=== PATIENT | female | born 1990 | race African-American/Black ===

== ENCOUNTER → 2016-06-14 | Outpatient (CLI) | payer BC | END | disposition home or self-care (01) | LOC: MW.CHOBGYN 15:24 | PROVIDERS: ATTEND Advanced Practice Midwife | DX: Z33.1 Pregnant state, incidental (principal) | CPT/HCPCS: 36415; 84702 ==

== ENCOUNTER 2016-10-16 13:03 | Emergency (ER) | payer BC ==
--- NOTE | 2016-10-16 13:32 | EDM.PDOC ---
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 Patient had a positive home test approximately 3 weeks ago and subsequently now has severe cramping, some heavy bleeding, as well as perceived loss of something that looks tissue like. Patient acknowledges she did also have an in June 3-4 months ago.] Review of systems: As per history of present illness and below otherwise all systems reviewed and negative. Past medical history: As per history of present illness and as reviewed below otherwise noncontributory. Surgical history: As per history of present illness and as reviewed below otherwise noncontributory. Social history: No reported history of drug or alcohol abuse. Family history: As per history of present illness and as reviewed below otherwise noncontributory. Physical exam: HEENT: Atraumatic, normocephalic, pupils reactive, negative for conjunctival pallor or scleral icterus, mucous membranes moist, throat clear, neck supple, nontender, trachea midline. Lungs: Clear to auscultation, breath sounds equal bilaterally, chest nontender. Heart: S1S2, regular, negative for clicks, rubs, or JVD. Abdomen: Soft, nondistended, diffuse tenderness. Negative for masses or hepatosplenomegaly. Negative for costovertebral tenderness. Pelvis: Stable nontender. Genitourinary: Deferred. Rectal: Deferred. Extremities: Atraumatic, negative for cords or calf pain. Neurovascular unremarkable. Neuro: Awake, alert, oriented. Cranial nerves II through XII unremarkable. Cerebellum unremarkable. Motor and sensory unremarkable throughout. Exam nonfocal. Patient indicates she had been bleeding for several days and passed tissue vaginally but that the bleeding has tapered off and she is not bleeding now Patient indicated to nurse that she was nauseated and had been vomiting at home and felt dehydrated her urine indicates that she is not. Transvaginal ultrasound shows a single live intrauterine Diagnostics: [CBC, CMP, serum hCG quantitative, transvaginal ultrasound] Therapeutics: [IV, Toradol] Impression: [#1 threatened first trimester ] Plan: [Discharge with Zofran for home encourage sips and chips and or BRAT diet as tolerated follow-up with OB] Definitive disposition and diagnosis as appropriate pending reevaluation and review of above. Abdomen Pain Score (Numeric/FACES): 9 - Related Data Allergies Allergy/AdvReac Type Severity Reaction Status Date / Time No Known Allergies Allergy Verified 10/16/16 13:21 Home Meds: Home Meds Ondansetron HCl [Zofran] 4 mg PO Q8HR #20 tablet 10/16/16 [Rx] Past Medical History - Past Health History Medical/Surgical History: Denies Medical/Surgical History Social & Family History - Family History Family Medical History: Noncontributory - Tobacco Use Smoking Status *Q: Never Smoker - Recreational Drug Use Recreational Drug Use: No ED ROS GENERAL - Review of Systems Review Of Systems: See Below (See history of present illness) ED EXAM - Physical Exam Exam: See Below (See history of present illness) Course - Vital Signs Last Recorded V/S: Last Vital Signs Temp 37.2 C 10/16/16 13:21 Pulse 85 10/16/16 13:21 Resp 16 10/16/16 13:21 BP 125/75 10/16/16 13:21 Pulse Ox 98 10/16/16 13:21 - Orders/Labs/Meds Orders: Active Orders 24 hr Category Date Time Status OB 1st Tri Sgl 1st Gest [US] Stat Exams 10/16/16 13:22 Ordered Labs: Laboratory Tests 10/16/16 10/16/16 10/16/16 Range/Units 13:40 13:45 13:45 WBC 7.59 (4.0-11.0) K/uL RBC 3.94 L (4.30-5.90) M/uL Hgb 12.9 (12.0-16.0) g/dL Hct 37.3 (36.0-46.0) % MCV 94.7 (80.0-98.0) fL MCH 32.7 H (27.0-32.0) pg MCHC 34.6 (31.0-37.0) g/dL RDW Std Deviation 43.4 (28.0-62.0) fl RDW Coeff of Jenn 13 (11.0-15.0) % Plt Count 269 (150-400) K/uL MPV 8.40 (7.40-12.00) fL Neut % (Auto) 64.4 (48.0-80.0) % Lymph % (Auto) 22.9 (16.0-40.0) % Harris % (Auto) 10.0 (0.0-15.0) % Eos % (Auto) 2.6 (0.0-7.0) % Baso % (Auto) 0.1 (0.0-1.5) % Neut # (Auto) 4.9 (1.4-5.7) K/uL Lymph # (Auto) 1.7 (0.6-2.4) K/uL Harris # (Auto) 0.8 (0.0-0.8) K/uL Eos # (Auto) 0.2 (0.0-0.7) K/uL Baso # (Auto) 0.0 (0.0-0.1) K/uL Nucleated RBC % 0.0 /100WBC Nucleated RBCs # 0 K/uL HCG, Quant 23611.1 mIU/mL Urine Color YELLOW Urine Appearance CLEAR Urine pH 5.5 (5.0-8.0) Ur Specific [place] <= 1.005 (1.001-1.035) Urine Protein NEGATIVE (NEGATIVE) mg/dL Urine Glucose (UA) NEGATIVE (NEGATIVE) mg/dL Urine Ketones NEGATIVE (NEGATIVE) mg/dL Urine Occult Blood TRACE-INTACT (NEGATIVE) Urine Nitrite NEGATIVE (NEGATIVE) Urine Bilirubin NEGATIVE (NEGATIVE) Urine Urobilinogen 0.2 (<2.0) EU/dL Ur Leukocyte Esterase NEGATIVE (NEGATIVE) Urine RBC 0-3 (0-2/HPF) Urine WBC 0-2 (0-5/HPF) Ur Epithelial Cells MODERATE (NONE-FEW) Urine Bacteria FEW (NEGATIVE) Departure - Departure Time of Disposition: 15:34 Disposition: Home, Self-Care 01 Condition: Good Clinical Impression: Threatened - Discharge Information Referrals: Anitra Hutson CNM [Primary Care Provider] - Forms: ED Department Discharge Additional Instructions: The following information is given to patients seen in the emergency department who are being discharged to home. This information is to outline your options for follow-up care. We provide all patients seen in our emergency department with a follow-up referral. The need for follow-up, as well as the timing and circumstances, are variable depending upon the specifics of your emergency department visit. If you don't have a primary care physician on staff, we will provide you with a referral. We always advise you to contact your personal physician following an emergency department visit to inform them of the circumstance of the visit and for follow-up with them and/or the need for any referrals to a consulting specialist. The emergency department will also refer you to a specialist when appropriate. This referral assures that you have the opportunity for follow-up care with a specialist. All of these measure are taken in an effort to provide you with optimal care, which includes your follow-up. Under all circumstances we always encourage you to contact your private physician who remains a resource for coordinating your care. When calling for follow-up care, please make the office aware that this follow-up is from your recent emergency room visit. If for any reason you are refused follow-up, please contact the [facility] Emergency Department at and asked to speak to the emergency department charge nurse. Take medicine as directed Have complete pelvic rest for the next several weeks that the bellybutton to the knees a simulation of any kind until cleared by OB Establish care and follow-up with OB HORACE for trending of serum quantitative hCG levels [facility] Primary Care - Women's Health [address] [place] [id number] - My Orders Last 24 Hours: My Active Orders 10/16/16 13:22 OB 1st Tri Sgl 1st Gest [US] Stat - Assessment/Plan Last 24 Hours: My Active Orders 10/16/16 13:22 OB 1st Tri Sgl 1st Gest [US] Stat
[2016-10-16 16:59] VITALS: BP 112/69
--- NOTE | 2016-10-18 13:57 | US ---
EXAM DATE: 10/16/16 PATIENT'S AGE: 26 Patient: ROBLES BHAKTA Facility: [place], [place] Site . Site : 1990 Study: US OB Pelvis [id number]/9/2017 3:04:55 PM Ordering Physician: Doctor Crook Final Report: INDICATION: VAGINAL BLEEDING HISTORY: Vaginal bleeding. COMPARISON: None. TECHNIQUE: Pelvic ultrasound. Transabdominal imaging of the pelvis was obtained. The patient refused endovaginal imaging. Color/spectral Doppler was performed to evaluate for ovarian torsion. FINDINGS: There is an intrauterine gestational sac, with yolk sac, and embryo. Hammond-rump length is 7.9 mm. This corresponds to a gestational age of 6 weeks, 5 days. Mean sac diameter is 2.5 cm. This corresponds to a gestational age of 7 weeks, 5 days. The ultrasound gestational age today is 7 weeks, 2 days, which corresponds to an ultrasound EDC of 06/02/2017. There is no adnexal mass. The left ovary measures 1.7 x 1.7 x 2.2 cm. The right ovary measures 2.4 x 2.1 x 2.3 cm. Normal, low resistance arterial blood flow is preserved to both ovaries on color/spectral Doppler. IMPRESSION: Single living intrauterine embryo, with an ultrasound gestational age today of 7 weeks, 2 days, corresponding to an ultrasound EDC of 06/02/2017. Dictated by Mason Conway MD @ 10/16/2016 3:27:12 PM Dictated by: Mason Conway MD @ 10/16/2016 15:27:19 (Electronic Signature) Report Signed by Proxy. YULIA
== END 2016-10-16 15:53 | disposition home or self-care (01) ==
LOC: MW.ED 13:03
DX: O20.0 Threatened abortion (principal); Z3A.01 Less than 8 weeks gestation of pregnancy
CPT/HCPCS: 36415; 76801; 76801-26; 81001; 84702; 85025; 99283; 99284-25

== ENCOUNTER 2016-11-21 23:06 | Emergency (ER) | payer SELFPAY ==
[2016-11-21] MEDS ORDERED: Albuterol/Ipratropium 3.0-0.5 MG/3 ML Neb Soln NEB ONE (23:34)
[2016-11-21] MEDS ORDERED: Alum Hydrox/Mag Hydrox/Simeth 15 ML, Lidocaine 2% 5 ML PO ONE ×2 (23:34)
--- NOTE | 2016-11-21 23:36 | EDM.PDOC ---
ED HPI GENERAL MEDICAL PROBLEM - General Chief Complaint: Respiratory Problem Stated Complaint: COUGH/CONGESTION/CHEST PAIN/SOB Time Seen by Provider: 11/21/16 23:27 - History of Present Illness INITIAL COMMENTS - FREE TEXT/NARRATIVE: HISTORY AND PHYSICAL: History of present illness: The patient is a healthy 26-year-old female who presents with episodic spastic dry cough and a tickling her throat that makes her feel like "her ear is getting cut off" or that she can't swallow properly. Patient states that his been occurring episodically but she just got off a plane and it seems to be worse. Patient has been eating and drinking normally and has had a dry hacking cough. She has minimal nasal drainage but no fevers chills nausea vomiting abdominal pain. 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 Review of systems: As per history of present illness and below otherwise all systems reviewed and negative. Past medical history: As per history of present illness and as reviewed below otherwise noncontributory. Surgical history: As per history of present illness and as reviewed below otherwise noncontributory. Social history: No reported history of drug or alcohol abuse. Family history: As per history of present illness and as reviewed below otherwise noncontributory. Physical exam: Gen.: Well-developed well-nourished female whose vital signs of an reviewed by me. She is nontoxic and has a slight hoarseness to her throat and voice and she has a dry tickle/hacking cough that is visible in the room. She is not breathless and her voice is not muffled. HEENT: Atraumatic, normocephalic, pupils reactive, negative for conjunctival pallor or scleral icterus, mucous membranes moist, throat clear of exudates but there is posterior oropharyngeal erythema, there is no adenopathy or nuchal rigidity, neck supple, nontender, trachea midline. Lungs: Clear to auscultation, breath sounds equal bilaterally, chest nontender. There is no wheezing or stridor no worker breathing or sensory muscle use Heart: S1S2, regular rate and rhythm no overt murmurs Abdomen: Soft, nondistended, nontender. NABS Pelvis: Deferred Genitourinary: Deferred. Rectal: Deferred. Extremities: Atraumatic, negative for cords or calf pain. Neurovascular unremarkable. Neuro: Awake, alert, oriented. Cranial nerves II through XII unremarkable. Cerebellum unremarkable. Motor and sensory unremarkable throughout. Exam nonfocal. Diagnostics: Rapid strep influenza soft tissue neck x-ray chest x-ray Therapeutics: Amando kamara GI cocktail Patient states she does feel little but better after the treatments and says she has a nebulizer machine at home that she would like more albuterol for which I will prescribe. I will also prescribe her some Phenergan with codeine because she feels like the cough is what is bothering him the most and the tickling in the throat. She was advised to use coolmist humidifier and to follow -up in the clinic and I will give her referral to ENT as well and she may need to pursue that if the symptoms persist. Impression: Cough/odontophagia Definitive disposition and diagnosis as appropriate pending reevaluation and review of above. 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 ED EXAM, GENERAL - Physical Exam Exam: See Below (See dictation) Course - Vital Signs Last Recorded V/S: Last Vital Signs Temp 36.7 C 11/21/16 23:20 Pulse 78 11/21/16 23:20 Resp 18 11/21/16 23:20 BP 118/83 11/21/16 23:20 Pulse Ox 96 11/21/16 23:20 - Orders/Labs/Meds Orders: Active Orders 24 hr Category Date Time Status RT Aerosol Therapy [RC] ASDIRECTED Care 11/21/16 23:34 Active Chest 2V [CR] Stat Exams 11/21/16 23:33 Taken Neck Soft Tissue [CR] Stat Exams 11/21/16 23:34 Taken CULTURE STREP A CONFIRMATION [RM] Stat Lab 11/22/16 00:08 Results INFLUENZA A+B AG SCREEN [RM] Stat Lab 11/21/16 23:36 Uncollected STREP SCRN A RAPID W CULT CONF [RM] Stat Lab 11/22/16 00:08 Results Meds: Medications Discontinued Medications Generic Name Dose Route Start Last Admin Trade Name Freq PRN Reason Stop Dose Admin Albuterol/Ipratropium 3 ml 11/21/16 23:34 11/22/16 00:09 Duoneb 3.0-0.5 Mg/3 Ml NEB 11/21/16 23:35 3 ml ONETIME ONE Administration Al Hydroxide/Mg Hydroxide 15 0 ml 11/21/16 23:34 11/22/16 00:09 ml/ Lidocaine HCl 5 ml PO 11/21/16 23:35 20 each ONETIME ONE Administration Departure - Departure Time of Disposition: 00:48 Disposition: Home, Self-Care 01 Condition: Good Clinical Impression: Cough - Discharge Information Referrals: PCP,None [Primary Care Provider] - Forms: ED Department Discharge Additional Instructions: The following information is given to patients seen in the emergency department who are being discharged to home. This information is to outline your options for follow-up care. We provide all patients seen in our emergency department with a follow-up referral. The need for follow-up, as well as the timing and circumstances, are variable depending upon the specifics of your emergency department visit. If you don't have a primary care physician on staff, we will provide you with a referral. We always advise you to contact your personal physician following an emergency department visit to inform them of the circumstance of the visit and for follow-up with them and/or the need for any referrals to a consulting specialist. The emergency department will also refer you to a specialist when appropriate. This referral assures that you have the opportunity for followup care with a specialist. All of these measure are taken in an effort to provide you with optimal care, which includes your followup. Under all circumstances we always encourage you to contact your private physician who remains a resource for coordinating your care. When calling for followup care, please make the office aware that this follow-up is from your recent emergency room visit. If for any reason you are refused follow-up, please contact the [facility] emergency department at and ask to speak to the emergency department charge nurse. [facility] Primary care- Internal Medicine and Family [address] [place] [id number] [facility] [address] [place] [address] Please contact one of our clinic providers for further reevaluation and care of this problem. Use albuterol in your nebulizer machine every 6 hours as needed. Please use the Phenergan with codeine prescribed to be Insty Meds for cough for sleep but do not take it unless you're at home as it may make you drowsy. Please also contact our ENT specialist for further care as you feel necessary. Return to ER as needed and as discussed. Push hydration - My Orders Last 24 Hours: My Active Orders 11/21/16 23:33 Chest 2V [CR] Stat 11/21/16 23:34 RT Aerosol Therapy [RC] ASDIRECTED Neck Soft Tissue [CR] Stat 11/21/16 23:36 INFLUENZA A+B AG SCREEN [RM] Stat 11/22/16 00:08 CULTURE STREP A CONFIRMATION [RM] Stat STREP SCRN A RAPID W CULT CONF [] Stat - Assessment/Plan Last 24 Hours: My Active Orders 11/21/16 23:33 Chest 2V [CR] Stat 11/21/16 23:34 RT Aerosol Therapy [RC] ASDIRECTED Neck Soft Tissue [CR] Stat 11/21/16 23:36 INFLUENZA A+B AG SCREEN [RM] Stat 11/22/16 00:08 CULTURE STREP A CONFIRMATION [RM] Stat STREP SCRN A RAPID W CULT CONF [] Stat
[2016-11-22 01:04] VITALS: BP 112/70
--- NOTE | 2016-11-22 14:35 | CR ---
EXAM DATE: 11/21/16 PATIENT'S AGE: 26 Patient: ROBLES BHAKTA Facility: [place], [place] Site . Site : 1990 Study: XRay ST Neck [id number]/16/2017 12:05:35 AM Ordering Physician: Venu Freeman Final Report: INDICATION: Pain. TECHNIQUE: Soft tissue neck 2 view. COMPARISON: None. FINDINGS: Prevertebral soft tissues and airway as imaged are unremarkable. The epiglottis is normal in appearance. No radiopaque foreign body evident. Visualized osseous structures are unremarkable. IMPRESSION: Unremarkable soft tissue neck radiographs. Dictated by Dustin Parson MD @ 11/22/2016 12:12:29 AM Dictated by: Dustin Parson MD @ 11/22/2016 00:12:37 (Electronic Signature) Report Signed by Proxy. YULIA
--- NOTE | 2016-11-22 14:38 | CR ---
EXAM DATE: 11/21/16 PATIENT'S AGE: 26 Patient: ROBLES BHAKTA Facility: [place], [place] Site . Site : 1990 Study: XRay Chest [id number]/16/2017 12:05:59 AM Ordering Physician: Venu Freeman Final Report: INDICATIONS: Pain. Shortness of breath. TECHNIQUE: Chest 2 view. COMPARISON: None FINDINGS: No pneumothorax, pleural effusion or airspace consolidation. Cardiac and mediastinal contours are within normal limits. Upper abdomen and osseous structures show no acute abnormality IMPRESSION: No evidence of acute cardiopulmonary disease. Dictated by Dustin Parson MD @ 11/22/2016 12:10:53 AM Dictated by: Dustin Parson MD @ 11/22/2016 00:11:12 (Electronic Signature) Report Signed by Proxy. [facility]
== END 2016-11-22 01:07 | disposition home or self-care (01) ==
LOC: MW.ED 23:06
DX: R05 Cough (principal); F17.210 Nicotine dependence, cigarettes, uncomplicated
CPT/HCPCS: 70360; 71020; 87081; 87880; 99285; A9270; 99282